=== PATIENT | male | born 1950 | race Caucasian/White ===

== ENCOUNTER 2020-02-24 14:19 | Emergency (ER) | payer OTHER, BC ==
--- NOTE | 2020-02-24 14:32 | PDOC ---
Attending Attestation - Resident Resident Name: Luisito Barry - ED Attending Attestation I have performed the following: I have examined & evaluated the patient, The case was reviewed & discussed with the resident, I agree w/resident's findings & plan, Exceptions are as noted - HPI HPI: 02/24/20 15:08 69 years old no past medical history presents with bee sting to right hand. Hand swollen painful tender to touch. Positive history of similar no significant or respiratory aches. Pain is moderate to severe persistent constant no exacerbating relieving factors. - Physicial Exam PE: 02/24/20 15:28 80 only discharge this pamela Vitals: Triage Vital signs reviewed General Appearance: No acute distress, well nourished well developed, Head: Atraumatic, Throat: Posterior oropharynx without erythema, mucous membranes moist,No bruits Neck: Supple; no Nucal rigidity Chest Wall: Nontender Cardiac: Regular rate and rhythym, no murmurs, no rubs, no gallops, Lungs: Clear to auscultation bilateral, good air movement bilaterally, Extremities: Decreased range of motion to right hand secondary to swelling no bee sting are notedno cyanosis, clubbing, or edema Skin: Right hand swollen Psych: Normal mood, normal affect - Medical Decision Making 02/24/20 15:28 Well-appearing no apparent distress localized allergic reaction to hand. No history of respiratory involvement Patient given IM and p.o. medications observe the emergency department. No progression of spreading. No respiratory involvement. Discharged with EpiPen steroids Benadryl We will follow-up with PCP Findings, need for follow-up and strict return instruction discussed with patient. Discharge - Discharge Information Problems reviewed: Yes Clinical Impression/Diagnosis: Allergic reaction Qualifiers: Encounter type: initial encounter Qualified Code(s): T78.40XA - Allergy, unspecified, initial encounter Bee sting Qualifiers: Encounter type: initial encounter Injury intent: accidental or unintentional Qualified Code(s): T63.441A - Toxic effect of venom of bees, accidental (unintentional), initial encounter Condition: Good Disposition: HOME - Additional Discharge Information Prescriptions: Diphenhydramine HCl [Benadryl -] 25 mg PO Q6H #28 capsule predniSONE [Deltasone -] 40 mg PO DAILY 2 Days #4 tablet Epinephrine [Epipen 2-Jonathan] 0.3 mg IJ ASDIR #1 kit Epinephrine [Epipen 2-Jonathan] 0.3 mg IJ ASDIR #1 kit - Follow up/Referral Referrals: Eduardo Olson MD [Primary Care Provider] - - Patient Discharge Instructions Patient Printed Discharge Instructions: DI for General Allergic Reactions Additional Instructions: You were seen in the Emergency Department for evaluation of a bee sting to the right hand. You were treated with Benadryl, Pepcid, and Decadron. You may continue to take the Benadryl 25mg by mouth every 6 hours as needed for swelling/itching. Review the handout provided at discharge. Follow up with your primary care provider. Return to the Emergency Department if you develop fevers/chills, chest pain, trouble breathing, tongue tingling, throat or chest tightness, wheezing, worsening swelling, worsening symptoms, or any new/concerning symptoms. - Post Discharge Activity Work/Back to School Note: Back to Work
[2020-02-24 14:37] VITALS: BP 110/79; PULSE 75; TEMP 98; BMI 24.3
[2020-02-24] MEDS ORDERED: DEXAMETHASONE 4 MG TABLET (FP) PO ONE (14:38)
[2020-02-24] MEDS ORDERED: FAMOTIDINE 20 MG TABLET PO ONE (14:38)
--- NOTE | 2020-02-24 14:39 | PDOC ---
History of Present Illness - General Chief Complaint: Redness To Affected Area Stated Complaint: BEE STING Time Seen by Provider: 02/24/20 14:25 - History of Present Illness Initial Comments: The pt is a 69M w/ no reported PMH who presents for evaluation of a bee sting to the right hand. The pt reports approximately 1hr prior to presentation he was stung by a bee, since that time he has had swelling to his right long finger and hand. He denies changes in sensation, trouble breathing/swallowing, tongue tingling, wheezing, or chest/throat tightness. He denies recent fevers/chills, illness, cough, N/V 02/24/20 14:34 Past History - Medical History Allergies/Adverse Reactions: Allergies Allergy/AdvReac Type Severity Reaction Status Date / Time ibuprofen [From Motrin] Allergy Mild Nausea Verified 11/07/15 11:28 Home Medications: Ambulatory Orders Ascorbic Acid [Vitamin C] 250 mg PO DAILY 06/18/13 Aspirin Coated [Ecotrin -] 81 mg PO DAILY 06/18/13 Docosahexanoic Acid/Epa [Fish Oil Concentrate Softgel] 1 each PO DAILY 06/18/13 Multivitamin [Multivitamins] 1 each PO DAILY 06/18/13 Diphenhydramine HCl [Benadryl -] 25 mg PO Q6H #28 capsule 02/24/20 Epinephrine [Epipen 2-Jonathan] 0.3 mg IJ ASDIR #1 kit 02/24/20 Epinephrine [Epipen 2-Jonathan] 0.3 mg IJ ASDIR #1 kit 02/24/20 predniSONE [Deltasone -] 40 mg PO DAILY 2 Days #4 tablet 02/24/20 - Surgical History Appendectomy: Yes - Psycho-Social/Smoking History Smoking History: Former smoker Have you smoked in the past 12 months: No If you are a former smoker, when did you quit?: 30YRS AGO Cigars Per Day: 1 Review of Systems - Review of Systems Able to Perform ROS?: Yes Comments:: GENERAL/CONSTITUTIONAL: No fever or chills. No weakness HEAD, EYES, EARS, NOSE AND THROAT: No change in vision. No change in hearing. No sore throat CARDIOVASCULAR: No chest pain or shortness of breath RESPIRATORY: Denies cough, hemoptysis GASTROINTESTINAL: No nausea, vomiting, diarrhea or constipation GENITOURINARY: No dysuria, frequency, or change in urination MUSCULOSKELETAL: No neck or back pain SKIN: No rash NEUROLOGIC: No headache, vertigo, loss of consciousness, or change in strength/sensation ENDOCRINE: No increased thirst. No abnormal weight change HEMATOLOGIC/LYMPHATIC: No anemia, easy bleeding, or history of blood clots ALLERGIC/IMMUNOLOGIC: +right hand swelling/erythema 02/24/20 14:40 Is the patient limited Nigerien proficient: No *Physical Exam - Physical Exam GENERAL: Awake, alert, and oriented to person/place/time, in no acute distress HEAD: No signs of trauma, normocephalic, atraumatic EYES: PERRLA, EOMI, sclera anicteric, conjunctiva clear ENT: Hearing grossly normal, nares patent, oropharynx clear without exudates. Moist mucosa LUNGS: No distress, speaks in full sentences, clear to auscultation bilaterally HEART: Regular rate and rhythm, normal S1 and S2, no murmurs appreciated, peripheral pulses normal and equal bilaterally ABDOMEN: Soft, nontender, normoactive bowel sounds. No guarding, no rebound EXTREMITIES: Normal inspection, Normal range of motion, strength intact throughout NEUROLOGICAL: Cranial nerves II through XII grossly intact. Normal speech, normal gait, no focal sensorimotor deficits SKIN: R hand erythema and swelling, maximal on dorsal side and near proximal long finger 02/24/20 14:40 Medical Decision Making - Medical Decision Making The pt is a 69M w/ no reported PMH who presents for evaluation of a bee sting to the right hand approximately 1hr prior to arrival Pt has not taken anything for his symptoms Denies symptoms of airway compromise ED Course Benadryl, Pepcid, and Decadron for symptomatic relief Will observe for improvement Rx for EpiPen x2, Benadryl 25mg PO Q6H PRN, and Prednisone 40mg PO daily (2 days) sent to pt's pharmacy 02/24/20 14:41 Pt with improving symptoms Plan for D/C w/ PCP f/u Discharge instructions and return precautions given Patient in agreement and verbalized understanding Dispo: Home 02/24/20 15:25 Discharge - Discharge Information Problems reviewed: Yes Clinical Impression/Diagnosis: Allergic reaction Qualifiers: Encounter type: initial encounter Qualified Code(s): T78.40XA - Allergy, unspecified, initial encounter Bee sting Qualifiers: Encounter type: initial encounter Injury intent: accidental or unintentional Qualified Code(s): T63.441A - Toxic effect of venom of bees, accidental (unintentional), initial encounter Condition: Good Disposition: HOME - Admission No - Additional Discharge Information Prescriptions: Diphenhydramine HCl [Benadryl -] 25 mg PO Q6H #28 capsule predniSONE [Deltasone -] 40 mg PO DAILY 2 Days #4 tablet Epinephrine [Epipen 2-Jonathan] 0.3 mg IJ ASDIR #1 kit Epinephrine [Epipen 2-Jonathan] 0.3 mg IJ ASDIR #1 kit - Follow up/Referral Referrals: Eduardo Olson MD [Primary Care Provider] - - Patient Discharge Instructions Patient Printed Discharge Instructions: DI for General Allergic Reactions Additional Instructions: You were seen in the Emergency Department for evaluation of a bee sting to the right hand. You were treated with Benadryl, Pepcid, and Decadron. You may continue to take the Benadryl 25mg by mouth every 6 hours as needed for swelling/itching. Review the handout provided at discharge. Follow up with your primary care provider. Return to the Emergency Department if you develop fevers/chills, chest pain, trouble breathing, tongue tingling, throat or chest tightness, wheezing, worsening swelling, worsening symptoms, or any new/concerning symptoms. - Post Discharge Activity Work/Back to School Note: Back to Work
[2020-02-24] MEDS ORDERED: DEXAMETHASONE 4 MG TABLET (FP) ONE (14:41)
[2020-02-24] MEDS ORDERED: FAMOTIDINE 20 MG TABLET ONE (14:41)
== END 2020-02-24 15:31 | disposition home or self-care (01) ==
LOC: FER 14:19
PROC: 3E023GC Introduction of Other Therapeutic Substance into Muscle, Percutaneous Approach (ICD-10-PCS; principal; 2020-02-24)
DX: T63.441A Toxic effect of venom of bees, accidental (unintentional), initial encounter (principal); T78.40XA Allergy, unspecified, initial encounter
CPT/HCPCS: 99284-25

== ENCOUNTER 2021-05-16 16:31 | Emergency (ER) | payer OTHER, BC ==
[2021-05-16 16:45] VITALS: BP 127/86; PULSE 86; TEMP 97.9; BMI 24.3
== END 2021-05-16 17:45 | disposition home or self-care (01) ==
LOC: FER 16:31
DX: S86.811A Strain of other muscle(s) and tendon(s) at lower leg level, right leg, initial encounter (principal); Y99.8 Other external cause status
CPT/HCPCS: 73560-TC-RT-FY; 99283-25

== ENCOUNTER 2022-06-15 08:07 | Emergency (ER) | payer OTHER, BC ==
[2022-06-15 08:14] VITALS: BP 137/89; PULSE 85; RESP 20; TEMP 98.6; BMI 24.3
[2022-06-15] MEDS ORDERED: LIDOCAINE 5% TOPICAL PATCH TP ONE (08:33)
[2022-06-15] MEDS ORDERED: KETOROLAC TROMETHAMINE 30 MG/1 ML VIAL IM ONE (08:33)
[2022-06-15] MEDS ORDERED: diazePAM 5 MG TABLET PO ONE (08:33)
[2022-06-15] MEDS ORDERED: diazePAM 5 MG TABLET ONE (08:37)
[2022-06-15] MEDS ORDERED: KETOROLAC TROMETHAMINE 30 MG/1 ML VIAL ONE (08:38)
[2022-06-15] MEDS ORDERED: LIDOCAINE 5% TOPICAL PATCH ONE (08:38)
[2022-06-15] MEDS ORDERED: LIDOCAINE PATCH REMOVAL MC SCH (22:00)
== END 2022-06-15 12:08 | disposition home or self-care (01) ==
LOC: FER 08:07
PROC: 3E023GC Introduction of Other Therapeutic Substance into Muscle, Percutaneous Approach (ICD-10-PCS; principal; 2022-06-15)
DX: M62.838 Other muscle spasm (principal)
CPT/HCPCS: 99284-25

== ENCOUNTER 2024-04-06 04:15 | Day surgery (SDC) | payer OTHER, BC ==
[2024-04-02 16:23] VITALS: BMI 24.3
[2024-04-06] MEDS ORDERED: ONDANSETRON 4 MG/2 ML VIAL ONE (10:58)
[2024-04-06] MEDS ORDERED: KETOROLAC TROMETHAMINE 30 MG/1 ML VIAL ONE (10:58)
[2024-04-06] MEDS ORDERED: MIDAZOLAM HCL 2 MG/2 ML SINGLE DOSE VIAL ONE (11:00)
[2024-04-06] MEDS ORDERED: ELECTROLYTE-148 SOLN 1,000 ML IV SCH (11:15)
[2024-04-06] MEDS ORDERED: ceFAZolin SODIUM 1 GM VIAL ONE (11:22)
[2024-04-06] MEDS: ceFAZolin 2 GRAM PREMIX BAG IVPB ONE (11:25)
[2024-04-06 13:20] VITALS: BP 111/73; PULSE 73; RESP 16; TEMP 97.3
== END 2024-04-06 12:40 | disposition home or self-care (01) ==
LOC: JASU-SURG 04:15
PROVIDERS: ATTEND Urology
PROC: 0TF3XZZ Fragmentation in Right Kidney Pelvis, External Approach (ICD-10-PCS; principal; 2024-04-06 10:45)
DX: N20.0 Calculus of kidney (principal)